=== PATIENT | female | born 1990 | race Caucasian/White ===

== ENCOUNTER 2023-12-30 05:50 | Inpatient (IN) | payer BC ==
[2023-12-28 15:11] VITALS: BMI 40.4
[2023-12-30] MEDS ORDERED: TRANEXAMIC 1,000 MG/100ML-NACL 1,000 MG in EMPTY BAG 1 BAG IV PRN (06:09)
[2023-12-30] MEDS ORDERED: miSOPROStoL 200 MCG TAB PO PRN (06:09)
[2023-12-30] MEDS ORDERED: CARBOPROST TROMETHAMINE 250 MCG/ML 1 ML AMP IM PRN (06:09)
[2023-12-30] MEDS ORDERED: METHYLERGONOVINE 0.2 MG/ML 1 ML AMP IM PRN (06:09)
[2023-12-30] MEDS ORDERED: OXYTOCIN 10 UNIT/ML 1 ML VIAL IM PRN (06:09)
[2023-12-30] MEDS: LACTATED RINGERS 1,000 ML BAG IV STA (06:32)
[2023-12-30 07:07] LABS: Basophils % (A) 0 %; Eosinophils # (A) 0.2 k/uL (0-0.7); Eosinophils % (A) 3 %; HCT 30.6 % (34.0-46.0); HGB 9.7 gm/dL (11.4-16.0); Hypochromasia Moderate; Lymphocytes # (A) 1.9 k/uL (1.0-4.8); Lymphocytes % (A) 28 %; MCH 25.7 pg (25.0-35.0); MCHC 31.9 g/dL (31.0-37.0); MCV 80.7 fL (80.0-100.0); Mean Platelet Volume 8.7; Monocytes # (A) 0.4 k/uL (0-1.0); Monocytes % (A) 6 %; Neutrophils # (A) 4.2 k/uL (1.3-7.7); Neutrophils % (A) 61 %; Platelet Count 255 k/uL (150-450); RBC 3.79 m/uL (3.80-5.40); RDW 15.5 % (11.5-15.5); WBC 6.8 k/uL (3.8-10.6)
[2023-12-30] MEDS: ceFAZolin 3 GM in SODIUM CHLORIDE 0.9% 100 ML IVPB ONE (07:27)
[2023-12-30] MEDS: CITRIC ACID-SODIUM CITRATE 15 ML CUP PO ONE (07:27)
[2023-12-30] MEDS ORDERED: ONDANSETRON 4 MG/2 ML VIAL ONE (08:02)
[2023-12-30] MEDS ORDERED: MORPHINE SULFATE (PF) 0.3 MG/0.3 ML SYR ONE (08:02)
[2023-12-30] MEDS ORDERED: OXYTOCIN 30 UNITS/500 ML NS BAG IV ONE (08:02)
[2023-12-30] MEDS ORDERED: diphenhydrAMINE 50 MG/ML 1 ML VIAL IVP PRN (08:51)
[2023-12-30] MEDS ORDERED: METOCLOPRAMIDE 5 MG/ML 2 ML VIAL IVP PRN (08:51)
[2023-12-30] MEDS ORDERED: ZOLPIDEM 5 MG TAB PO PRN (08:51)
[2023-12-30] MEDS ORDERED: diphenhydrAMINE 50 MG CAP PO PRN (08:51)
[2023-12-30] MEDS ORDERED: SIMETHICONE 80 MG CHEWABLE PO PRN (08:51)
[2023-12-30] MEDS ORDERED: NALOXONE 0.4 MG/ML 1 ML VIAL IV PRN (08:51)
[2023-12-30] MEDS ORDERED: diphenhydrAMINE 25 MG CAP PO PRN (08:51)
[2023-12-30] MEDS ORDERED: ONDANSETRON 4 MG/2 ML VIAL IVP PRN (08:51)
--- NOTE | 2023-12-30 08:55 | P.HPOB ---
History of Present Illness H&P Date: 12/30/23 Chief Complaint: IUP at 39-0/7 weeks, history of x 1, desires repeat 33-year-old 3 para 1-0-1-1 at 39-0/7 weeks that presents to labor and delivery for scheduled repeat section with tubal ligation. Patient has been receiving routine care which has been essentially uncomplicated. Patient notes good movement and an occasional contraction this morning. Patient denies vaginal bleeding or loss of fluid. On blood work this patient is able type of O+, rubella status immune, hepatitis B surface engine negative, HIV negative, RPR is nonreactive, group B strep cultures are negative. Review of Systems Constitutional: Denies chills, Denies fatigue, Denies fever Ears, nose, mouth and throat: Denies headache Cardiovascular: Reports leg edema Respiratory: Denies dyspnea Gastrointestinal: Denies constipation, Denies diarrhea, Denies nausea, Denies vomiting Genitourinary: Reports Past Medical History Past Medical History: Thyroid Disorder History of Any Multi-Drug Resistant Organisms: None Reported Past Surgical History: Section, Tonsillectomy Additional Past Surgical History / Comment(s): BMT Past Anesthesia/Blood Transfusion Reactions: No Reported Reaction Past Psychological History: No Psychological Hx Reported Smoking Status: Never smoker Past Alcohol Use History: Occasional Additional Past Alcohol Use History / Comment(s): OCCASIONALLY BUT NOT DURING Past Drug Use History: None Reported - Past Family History Mother Family Medical History: No Reported History Medications and Allergies Home Medications Medication Instructions Recorded Confirmed Type Levothyroxine Sodium 100 mcg PO DAILY 12/28/23 12/30/23 History Vit No.179/Iron/Folic 1 each PO DAILY 12/28/23 12/30/23 History [ Tablet] Allergies Allergy/AdvReac Type Severity Reaction Status Date / Time No Known Allergies Allergy Verified 12/30/23 06:08 Exam Osteopathic Statement: *. No significant issues noted on an osteopathic structural exam other than those noted in the History and Physical/Consult. Intake and Output 12/29/23 12/30/23 12/30/23 22:59 06:59 14:59 Other: Weight 131.542 kg Targeted physical exam is performed this date in general is a well-nourished well-developed female in no acute distress, breathing is nonlabored, heart has a regular and rhythm, abdomen is noted to be gravid, cervical exam is deferred, heart tones are to be category 1 with an occasional contraction appreciated. Results Result Diagrams: 12/30/23 06:27 Abnormal Lab Results - Last 24 Hours (Table) 12/30/23 Range/Units 06:27 RBC 3.79 L (3.80-5.40) m/uL Hgb 9.7 L (11.4-16.0) gm/dL Hct 30.6 L (34.0-46.0) % Assessment and Plan (1) Term Current Visit: Yes Status: Acute Code(s): Z34.90 - ENCNTR FOR SUPRVSN OF NORMAL , UNSP, UNSP TRIMESTER SNOMED Code(s): 54997440 (2) History of section Current Visit: Yes Status: Acute Code(s): Z98.891 - HISTORY OF UTERINE SCAR FROM PREVIOUS SURGERY SNOMED Code(s): 778970035 Plan: 33-year-old 3 para 1-0-1-1 at 39-0/7 weeks presents for repeat section. Patient desires permanent sterilization as she is done with childbearing. Surgery is reviewed and risks are discussed. Patient is counseled on the permanence of tubal ligation. Patient states understanding and once again is done with childbearing. Will proceed to operating suite for repeat section.
--- NOTE | 2023-12-30 08:59 | P.OP ---
Date of Procedure: 12/30/23 Preoperative Diagnosis: IUP at 39-0/7 weeks, history of x 1, desires repeat Postoperative Diagnosis: Same Procedure(s) Performed: Repeat section with bilateral salpingectomy Anesthesia: spinal Surgeon: Aylin Mota Bioinformatician #1: Helene Trejo Estimated Blood Loss (ml): 394 IV fluids (ml): 1,000 Urine output (ml): 200 Pathology: none sent Condition: stable Disposition: observation Indications for Procedure: 33-year-old 3 para 1 at 39-0/7 weeks presents for repeat section. Patient has a prior history of section and desires repeat. Operative Findings: Normal uterus tubes and ovaries were appreciated, viable male delivered at 824, weight of 10 pounds 2 ounces, Apgars of 9 and 9 at 1 and 5 minutes respectively. head delivered via vacuum assist Description of Procedure: The patient was prepped and draped in the usual fashion after spinal anesthesia was administered by anesthesia department. A Pfannenstiel incision was made and extended of the abdominal cavity without difficulty. The bladder peritoneum was elevated and incised and reflected distally. A 2 cm incision was made in the transverse plane of the lower uterine segment to enter the uterus at which time clear fluid was noted. The incision was extended in both directions using the bandage scissors. The head was encountered within the field and delivered up and through the incision via vacuum assist, where the nose and mouth were thoroughly suctioned. Remainder of the was delivered onto the surgical field where the cord was doubly clamped, cut, and the was passed for resuscitative measures with weight and Apgars as noted above. A segment of cord was then doubly clamped, cut, and set aside should cord gases become necessary. The placenta was delivered manually, intact, and was grossly normal with a grossly normal three-vessel cord. The uterus was exteriorized and the interior cavity of the uterus swept of any remaining placental and membranous fragments with a laparotomy sponge. The margins of the incision were grasped with Allis clamps and the incision closed in 2 layers. First layer was a running locking layer of 0 Vicryl from margin to margin in a running locked fashion. Any small points of bleeding were then made hemostatic with the Bovie. The right fallopian tube was then elevated and the LigaSure device was used to transect the mesosalpinx to the cornual region. This was then repeated on the opposite side. Hemostasis was noted bilaterally. On inspection of the patient's hysterotomy incision small amount of bleeding was noted on the midportion of the uterine incision, therefore a [id number] suture was used to obtain hemostasis. Once hemostasis was achieved, the posterior cul-de-sac was suctioned with a guard and the uterine and ovarian findings are as noted above. The uterus was replaced within the abdominal cavity and the gutters swept of any remaining blood fluid or clot. The incision was again reexamined and hemostasis was noted to be excellent. Any small point of bleeding were made hemostatic with the Bovie. Once hemostasis was achieved the parietal peritoneum was loosely reapproximated. The layer of muscles were examined and made hemostatic with the Bovie. Attention was then turned to the fascia which was closed with 2 running stitches of 0 Vicryl proceeding from the lateral margins to the midpoint. The subcutaneous tissues were irrigated, made hemostatic with the Bovie, and reapproximated with a running stitch of 30 Vicryl. The skin was reapproximated with 4-0 Vicryl. Estimated blood loss for the case was approximately 394 mL. All sponge instrument and needle counts are correct. There were no complications. The patient tolerated the procedure well and proceeded to the recovery room in stable condition. Both mother and infant are resting comfortably in recovery.
--- NOTE | 2023-12-30 09:23 | P.ANPRN ---
Procedure Note - Anesthesia - Epidural/Spinal Spinal Time Out Performed: Yes Date of Procedure: 12/30/23 Procedure Start Time: 08:07 Procedure Stop Time: 08:11 Location of Patient: OB Indication: Acute Post-Operative Pain, Requested by Surgeon (angelica) Sedation Type: Sedate with meaningful contact maintained Preparation: Sterile Prep Number of Attempts: 1 Position: Sitting Catheter: None Needle Guage: 25 Injectate: bupi .075% 1.4 cc with duramorph 300mcg Blood Aspirated: No Pain Paresthesia on Injection Noted: No Events: Uneventful and Well Tolerated
[2023-12-30] MEDS: IBUPROFEN IV 800 MG in SODIUM CHLORIDE 0.9% 250 ML IV SCH (09:27)
[2023-12-30] MEDS: LACTATED RINGERS 1,000 ML IV SCH (09:30)
[2023-12-30] MEDS: diphenhydrAMINE 50 MG/ML 1 ML VIAL IVP PRN (11:18)
[2023-12-30] MEDS: ACETAMINOPHEN IV (For NPO) 1,000 MG in EMPTY BAG 1 BAG IVPB SCH (13:29)
[2023-12-30] MEDS: ACETAMINOPHEN TAB 500 MG TAB PO SCH (15:36)
[2023-12-30] MEDS: IBUPROFEN 600 MG TAB PO SCH (21:17)
[2023-12-30] MEDS: SENNOSIDES-DOCUSATE SODIUM 1 EACH TAB PO SCH (23:25)
[2023-12-31 06:35] LABS: Basophils % (A) 0 %; Eosinophils # (A) 0.2 k/uL (0-0.7); Eosinophils % (A) 3 %; HCT 29.6 % (34.0-46.0); HGB 9.6 gm/dL (11.4-16.0); Hypochromasia Slight; Lymphocytes # (A) 1.8 k/uL (1.0-4.8); Lymphocytes % (A) 28 %; MCH 26.5 pg (25.0-35.0); MCHC 32.5 g/dL (31.0-37.0); MCV 81.7 fL (80.0-100.0); Monocytes # (A) 0.4 k/uL (0-1.0); Monocytes % (A) 5 %; Neutrophils # (A) 4.1 k/uL (1.3-7.7); Neutrophils % (A) 62 %; Platelet Count 224 k/uL (150-450); RBC 3.63 m/uL (3.80-5.40); RDW 15.9 % (11.5-15.5); WBC 6.5 k/uL (3.8-10.6)
--- NOTE | 2023-12-31 11:12 | P.PNOBGPC ---
Subjective - Subjective Principal diagnosis: Postop day 1, repeat section Interval history: Patient is doing well postoperatively. She is ambulating and voiding without difficulty. She is tolerating a regular diet without nausea or vomiting. She denies concerns. Patient reports: Reports appetite normal, Reports voiding normally, Reports pain well controlled, Reports ambulating normally [place]: doing well Objective - Vital Signs Latest vital signs: Vital Signs Temp Pulse Resp BP Pulse Ox 12/31/23 08:00 98.3 F 91 16 127/68 97 12/31/23 00:00 97.8 F 75 18 111/72 98 12/30/23 20:00 97.9 F 66 18 115/81 98 12/30/23 13:00 98.0 F 77 16 123/78 Intake and Output 12/30/23 12/31/23 12/31/23 22:59 06:59 14:59 Intake Total 480 Output Total 500 Balance -20 Intake: IV 480 Output: Urine 500 Uretheral (Foreman) 500 Other: Voiding Method Toilet # Voids 2 - Exam Extremities: Present: normal, edema Abdomen: Present: normal appearance, soft Incision: Present: normal, dry, intact Uterus: Present: normal, firm - Labs Labs: Abnormal Lab Results - Last 24 Hours (Table) 12/31/23 Range/Units 06:19 RBC 3.63 L (3.80-5.40) m/uL Hgb 9.6 L (11.4-16.0) gm/dL Hct 29.6 L (34.0-46.0) % RDW 15.9 H (11.5-15.5) % Assessment and Plan (1) Term Current Visit: Yes Status: Acute Code(s): Z34.90 - ENCNTR FOR SUPRVSN OF NORMAL , UNSP, UNSP TRIMESTER SNOMED Code(s): 90658138 (2) History of section Current Visit: Yes Status: Acute Code(s): Z98.891 - HISTORY OF UTERINE SCAR FROM PREVIOUS SURGERY SNOMED Code(s): 869683899 (3) Status post section Current Visit: Yes Status: Acute Code(s): Z98.891 - HISTORY OF UTERINE SCAR FROM PREVIOUS SURGERY SNOMED Code(s): 422041561 Plan: Patient is doing well this morning. Plan to continue routine postoperative care and anticipate discharge home tomorrow.
--- NOTE | 2023-12-31 20:15 | P.PN ---
Progress Note - Text 12/31/23 721am 33-year-old female status post with spinal Duramorph. Patient seen and evaluated for postop pain control, she has a VAS of 1 with no complaint of nausea vomiting or pruritus patient is doing very well
[2024-01-01 08:05] VITALS: BP 143/85; PULSE 74; RESP 16; TEMP 97.7
--- NOTE | 2024-01-01 09:18 | P.DS ---
Providers Date of admission: 12/30/23 05:50 Expected date of discharge: 01/01/24 Attending physician: Aylin Mota Primary care physician: Stated None - Discharge Diagnosis(es) (1) Term Current Visit: Yes Status: Acute (2) History of section Current Visit: Yes Status: Acute (3) Status post section Current Visit: Yes Status: Acute Hospital Course: This is a 30-year-old 3 now para 2-0-1-2 that presented to labor and delivery on 12/29 for scheduled repeat section with bilateral salpingectomy. Patient has a prior history of section and desired repeat. Patient has been receiving routine care which has been essentially uncomplicated. Patient was taken back to the operating suite where a viable male was delivered at 824, weight of 10 pounds 2 ounces, Apgars of 9 and 9 at 1 and 5 minutes respectively. Patient has done well postoperatively. In this postoperative day #2 she is ambulating and voiding without difficulty. She is tolerating a regular diet without nausea or vomiting. She states her lochia is minimal. She is breast-feeding without difficulty. Patient Condition at Discharge: Good Plan - Discharge Summary Discharge Rx Participant: Yes New Discharge Prescriptions: No Action Vit No.179/Iron/Folic [ Tablet] 1 each PO DAILY Levothyroxine Sodium 100 mcg PO DAILY Discharge Medication List Levothyroxine Sodium 100 mcg PO DAILY 12/28/23 [History] Vit No.179/Iron/Folic [ Tablet] 1 each PO DAILY 12/28/23 [History] Follow up Appointment(s)/Referral(s): Aylin Mota DO [Doctor of Osteopathic Medicine] - 2 Weeks Patient Instructions/Handouts: (DC), (GEN) Activity/Diet/Wound Care/Special Instructions: No intercourse, tampons or tub baths. No heavy lifting greater than a gallon of milk. No driving for two weeks. Call with any fever, shakes or chills, with any pain not alleviated by over the counter meds, or with any questions or concerns. Usoc-dwu-djaoaaf ibuprofen 600 mg or 3 tablets every 6 hours as needed for pain. Discharge Disposition: HOME SELF-CARE
== END 2024-01-01 12:00 | disposition home or self-care (01) | DRG 785 ==
LOC: 4FBP 05:50
PROVIDERS: ADMIT Obstetrics & Gynecology Obstetrics; ATTEND Obstetrics & Gynecology Obstetrics
PROC: 0UB70ZZ Excision of Bilateral Fallopian Tubes, Open Approach (ICD-10-PCS; principal; 2023-12-30 08:00)
PROC: 10D00Z1 Extraction of Products of Conception, Low, Open Approach (ICD-10-PCS; principal; 2023-12-30 08:00)
DX: O34.211 Maternal care for low transverse scar from previous cesarean delivery (principal); O99.284 Endocrine, nutritional and metabolic diseases complicating childbirth; E07.9 Disorder of thyroid, unspecified; Z37.0 Single live birth; Z3A.39 39 weeks gestation of pregnancy; Z30.2 Encounter for sterilization; Z79.890 Hormone replacement therapy